=== PATIENT | male | born 1950 | race Caucasian/White ===

== ENCOUNTER 2020-09-12 13:13 | Outpatient (CLI) | payer OTHER ==
--- NOTE | 2020-09-12 17:16 | ULT ---
BILATERAL LOWER EXTREMITY ARTERIAL DOPPLER STUDY: 09/12/20 INDICATIONS: Hyperlipidemia. Arteries of both lower extremities evaluated with ultrasound and Doppler with color Doppler and spect ral analysis and velocity recordings. Right lower extremity: Right common femoral artery, profunda femoral, superficial femoral, popliteal, anterior tibial artery , and posterior tibial artery also a triphasic waveform with normal and symmetric velocities. The dorsal pedis artery on the right is monophasic. Left lower extremity: Arteries of the left lower extremity evaluated included common femoral artery, profunda femoral, supe rficial femoral, popliteal, anterior tibial artery, posterior tibial artery, and dorsalis pedis arter y all show a normal triphasic waveform with symmetric velocities. No significant echogenic plaque identified with ultrasound images. IMPRESSION: No evidence of significant peripheral vascular disease seen in either lower extremity by Doppler stud y and waveform analysis. POS: [facility]
== END 2020-09-12 13:14 | disposition home or self-care (01) ==
LOC: BICULT 13:13
PROVIDERS: ATTEND Nurse Practitioner Adult Health
DX: E78.5 Hyperlipidemia, unspecified (principal); L53.9 Erythematous condition, unspecified
CPT/HCPCS: 93923